=== PATIENT | male | born 1995 | race American Indian/Alaskan Native ===

== ENCOUNTER 2017-11-23 02:06 | Emergency (ER) | payer SELFPAY ==
[2017-11-23] MEDS ORDERED: SUBLIMAZE IV ONE ×2 (02:14→03:54)
[2017-11-23] MEDS ORDERED: NACL 0.9% 1000 ML 2,000 ML IV ONE (02:14)
[2017-11-23] MEDS ORDERED: ZOFRAN IV ONE (02:14)
[2017-11-23 02:23] LABS: Basophils # (Auto) 0.1 K/mm3 (0.0-0.1); Basophils % (Auto) 0.8 % (0.0-1.8); Eosinophils % (Auto) 0.2 % (0.0-4.3); Hematocrit 44.6 % (35.5-45.6); Hemoglobin 15.3 gm/dl (11.8-15.2); Lymphocytes # (Auto) 2.2 K/mm3 (1.2-5.4); Lymphocytes % (Auto) 33.8 % (13.4-35.0); Mean Corpuscular HGB Conc 34 % (32-34); Mean Corpuscular Hemoglobin 27 pg (28-32); Mean Corpuscular Volume 79 fl (84-94); Monocytes # (Auto) 0.7 K/mm3 (0.0-0.8); Monocytes % (Auto) 10.1 % (0.0-7.3); Platelet Count 266 K/mm3 (140-440); Red Blood Count 5.66 M/mm3 (3.65-5.03); Red Cell Distribution Width 12.6 % (13.2-15.2)
--- NOTE | 2017-11-23 02:31 | XRay Report ---
FINAL REPORT EXAM: XR CHEST 1V AP HISTORY: chest pain COMPARISON: None available. FINDINGS: Frontal view(s) of the chest obtained. Heart normal in size. There is a small left-sided pneumothorax approximately 20 percent lung volume. No definite shifting of mediastinal structures. No focal consolidation or effusion. There appears to be mild eventration left hemidiaphragm. IMPRESSION: Small left-sided pneumothorax approximately 20 percent lung volume. No rony shifting of mediastinal structures to suggest tension pneumothorax at this time. Findings discussed with on November 23, 2017 at 0225 hours EST.
[2017-11-23 02:34] LABS: INR 1.18 (0.87-1.13)
[2017-11-23 02:35] LABS: Partial Thromboplastin Time 27.5 Sec. (24.2-36.6)
[2017-11-23 02:49] LABS: Alanine Aminotransferase 8 units/L (7-56); Albumin 4.7 g/dL (3.9-5); BUN/Creatinine Ratio 6; Blood Urea Nitrogen 7 mg/dL (9-20); Calcium 9.7 mg/dL (8.4-10.2); Hemolysis Index 8; Lipase 25 units/L (13-60)
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
[2017-11-23] MEDS ORDERED: XYLOCAINE 2% INFILTRATI ONE (04:05)
[2017-11-23] MEDS ORDERED: XYLOCAINE 1% 20 mL ONE (04:05)
[2017-11-23] MEDS ORDERED: DILAUDID ONE (04:05)
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
[2017-11-23] MEDS ORDERED: DILAUDID IV ONE (04:20)
[2017-11-23] MEDS ORDERED: NACL 0.9% 1000 ML ONE (04:25)
[2017-11-23] MEDS ORDERED: NACL 0.9% 1000 ML 1,000 ML IV ONE (04:25)
[2017-11-23 04:29] VITALS: BP 141/63
== END 2017-11-23 04:51 | disposition other institution (70) ==
LOC: ED 02:06
DX: S21.312A Laceration without foreign body of left front wall of thorax with penetration into thoracic cavity, initial encounter (principal); S36.031A Moderate laceration of spleen, initial encounter; S31.109A Unspecified open wound of abdominal wall, unspecified quadrant without penetration into peritoneal cavity, initial encounter; J94.2 Hemothorax; J93.9 Pneumothorax, unspecified; F17.200 Nicotine dependence, unspecified, uncomplicated; X99.9XXA Assault by unspecified sharp object, initial encounter; Y93.89 Activity, other specified; Y92.89 Other specified places as the place of occurrence of the external cause; Y99.8 Other external cause status
CPT/HCPCS: 36415; 71045; 71260; 74177; 80053; 83690; 85025; 85610; 85730; 86850; 86900; 86901; 96361; 96374; 96375; 96376; 99285; J1170; J2405; J3010; J7030; Q9967